=== PATIENT | male | born 1995 | race Caucasian/White ===

== ENCOUNTER 2017-12-30 23:32 | Emergency (ER) | payer OTHER, SELFPAY ==
[2017-12-30 23:33] VITALS: BP 147/93; PULSE 68; RESP 18; TEMP 36.4; O2SAT 99; BMI 25.1
[2017-12-30] MEDS: Loratadine 10 MG Tablet PO (23:52)
[2017-12-30] MEDS: HYDROcodone Bitartrate/Apap 5/325 Tablet PO (23:52)
--- NOTE | 2017-12-31 00:14 | ED.VISSUMM ---
- ER Visit Summary Date of Service: 12/31/17 Chief Complaint: [Right ear pain and sore throat] History of Present Illness: The patient is a 22 M [presents the emergency department complaint of right ear pain that became more severe today. Patient states that about a week ago he started with a sore throat that then resolved after a couple of days that he started having some right sided sore throat and ear pain that gradually worsened tonight. Patient currently rates his pain a 6 out of 10. Patient has not had a fever. Denies any sick contacts. Denies any trauma to his ear.] Physical Examination: [HEENT-PERRLA, EOMI. Cranial nerves II through XII grossly intact. TMs clear. Mucous membranes moist. No adenopathy. Patient has small amount of fluid behind the right ear drum but no signs of infection. Pharynx is slightly erythematous. Tonsils are plus 3 out of 4 without evidence of exudates. No trismus on exam. No evidence of peritonsillar abscess. Cardiovascular-regular rate and rhythm without murmur or ectopy Lungs-clear to auscultation, chest wall stable without crepitus or subcu emphysema Abdomen-normoactive bowel sounds, soft, nontender, no rebound or rigidity, no peritoneal signs. Extremities-intact ?4, normal range of motion, normal pulses, atraumatic] Test Results: [Rapid strep screen was positive] Emergency Department Course and Treatment: [Patient was medicated with amoxicillin, Rose, and a dose of Claritin] Treatment Plan: [Patient will be given a prescription for Rose and amoxicillin] Disposition: [Discharged home in stable condition] Impression: [Strep pharyngitis Right ear pain] This note was generated with [employer] dictation software. It may contain incorrect words, spelling, and punctuation that were not noted in review of the chart prior to signing ED Disposition - Plan for ED Patient: Chief Complaint: Ear Problem Referrals: Tai Rios DO [Primary Care Provider] -
--- NOTE | 2017-12-31 00:18 | DCINST.ED_ITS ---
ED Disposition - Plan for ED Patient: Chief Complaint: Ear Problem Instructions: ED Strep Pharyngitis Conf Prescriptions: Hydrocodone Bitart/Apap 5-325 [[place] 5MG-325MG] 1 tab PO Q4H PRN PRN 2 Days #10 tab PRN Reason: Pain Amoxicillin 500 mg PO TID #30 tab Referrals: Tai Rios DO [Primary Care Provider] - 5-7 Days
[2017-12-31] MEDS: HYDROcodone Bitartrate/Apap 5/325 Tablet PO (00:22)
[2017-12-31] MEDS: AMOXICILLIN 500 MG CAPSULE PO (00:23)
[2017-12-31 00:27] VITALS: RESP 16
--- NOTE | 2017-12-31 00:28 | ED.RN ---
REVIEWED D/C INSTRUCTIONS, FOLLOW UP CARE, PRESCRIPTIONS, AND S/S THAT WOULD WARRANT A RETURN TO THE ED WITH PT. PT VERBALIZED AN UNDERSTANDING AND DENIES FURTHER QUESTIONS FOR THIS RN. PT SKIN P/W/D, RESP EVEN AND UNLABORED, PT A&O X 3, NO DISTRESS NOTED. PT AMBULATED OUT OF ED, GAIT STEADY.
== END 2017-12-31 00:29 | disposition home or self-care (01) ==
LOC: ED 23:59
PROVIDERS: Emergency Provider Emergency Medicine; Family Provider Family Medicine; PCP Family Medicine
DX: J02.0 Streptococcal pharyngitis (principal); H92.01 Otalgia, right ear
CPT/HCPCS: 87880; 99283

== ENCOUNTER 2022-06-27 10:58 | Day surgery (SDC) | payer OTHER, SELFPAY ==
[2022-06-27] VITALS (7 sets, daily range): BP systolic 118–129; BP diastolic 72–88; PULSE 51–62; RESP 16–18; TEMP 35.9–37.1; O2SAT 97–100; BMI 25.4
[2022-06-27] MEDS: Lactated Ringers 1,000 ML 15 ML IV (10:55)
--- NOTE | 2022-06-27 11:44 | PCM.HP.BLA ---
History and Physical Date of Admission: 06/27/22 Visit Reasons:?Right inguinal hernia Chief Complaint: right inguinal hernia Is patient in pain?: No Allergies No Known Allergies Allergy (Verified 06/15/22 07:11) [facility] Social History Smoking Status:? Never smoker HPI HPI HPI: 26-year-old gentleman presents with concerns regarding an inguinal hernia.? This is on the right side.? He has had it for about 3 weeks.? It did occur with some lifting.? He is otherwise physically very active.? He has had a previous left inguinal hernia repair by me in approximately 2011.? He also had a epigastric ventral hernia performed at that same time.? He has not had any umbilical surgery.? He otherwise enjoys very good health. ROS General General: No weight change, appetite, fatigue, colon cancer, breast cancer or weakness HEENT HEENT: No difficulty swallowing, eye injury, eye surgery, swollen glands or hoarseness Endo Endocrine: No thyroid disease, diabetes mellitus, thyroid cancer, Hair loss, heat intolerance or cold intolerance Skin Skin: No rash or changing moles Musc Musculoskeletal: No back problems, arthritis, rheumatoid arthritis, gout or joint pain Cardio Cardiovascular: No murmur, pacemaker, heart disease, atrial fibrillation, high blood pressure, heart attack, heart stent, palpitations, shortness of breat with exertion or chest pain Psych Psychiatric: No depression, anxiety or hearing voices Resp Respiratory: No shortness of breath, No sleep apnea, No cough, No COPD, No asthma, No emphysema and No wheezing Gastro Gastrointestinal: No abdominal pain, No nausea or vomiting, No diarrhea, No constipation, No blood in stool, No acid reflux, No hemorrhoids, No ulcers, No gallbladder problem and No black,tarry stools Deng Hematologic: No blood thinners, No blood disorders, No bleeding, No anemia and No blood clots Neuro Neurologic: No system reviewed and no additional complaints, except as documented, No as per HPI, No abnormal gait, No abnormal hearing, No abnormal movements, No abnormal speech, No behavioral changes, No burning sensations, No confusion, No convulsions, No disequilibrium, No dizziness, No localized weakness, No frequent falls, No headache(s), No lack of coordination, No loss of vision, No memory loss, No numbness, No other visual disturbances, No radicular pain, No restless legs, No sensory deficit, No syncope, No tingling, No tremor(s), No weakness and No other Exam Const General: cooperative, healthy appearing, comfortable and no acute distress [facility] Head: normal to inspection Eyes General: appearance normal, both eyes and all related structures Neck Neck: normal visual inspection Chest Chest palpation & inspection: normal inspection of the chest Resp Effort & Inspection: normal respiratory effort Auscultation: clear to auscultation bilaterally Cardio Rate: regular rate Rhythm: regular rhythm GI Inspection: normal to inspection Palpation: soft and no hepatosplenomegaly Auscultation: normal bowel sounds Other: Well-healed transverse left groin incision solid and intact.? Testicles are descended bilaterally.? Obvious right inguinal hernia but currently reducible. Skin General: no rashes or lesions noted Neuro General: patient alert, patient awake and patient oriented x3 Cognition: normal cognition Extrem General: no calf tenderness Psych Appearance: grossly normal Assessment and Plan Assessment and Plan (1) Inguinal hernia of right side without obstruction or gangrene: ?Status:?Acute ?Plan: I recommended the patient a laparoscopic right inguinal herniorrhaphy with mesh.? He is a very healthy patient and very active.? I believe that this would allow for least risk of operative complication and recurrence.? He has had an opportunity ask and have questions answered.? We will schedule procedure at his discretion. Dada Varela M.D., F.A.C.S I have examined the patient and the H&P has been reviewed. There are no clinical changes since date of exam. Dada Varela M.D., F.A.C.S.
--- NOTE | 2022-06-27 11:45 | DCINST_ITS ---
Discharge Instructions Procedure General Surgery Diet Discharge Diet: Light diet - advance as tolerated (if you have questions about your diet instructions, please talk to you doctor.) Activity Discharge Activity: May Not Drive (for 3-5 days or while taking narcotic pain medicine.) May shower in (days): 1 Lifting Restrictions: 10 pounds Dressing / Incision Call your doctor if your incision/area has: Continuous Slow Oozing, Sudden Increased Bleeding, Increased Pain/ Swelling, Increased Redness and Foul Smelling Discharge Call your doctor if you observe: Fever of 101 or Higher Suture Line Care: Avoid Pulling/Pushing and Avoid Pinching/Bending Additional Dressing/Incision Instructions:: Change or remove dressing in 4 days. Leave steri-strips in place for 1 week. Follow Up Care Please Follow Up With: Dada Varela MD When: Call [phone] to make an appointment to be seen in about 10 days. Test Results: Test results from this visit will be discussed in further detail at your follow- up appointment, if applicable. Discharge Plan Admission Attending Provider: Dada Varela Primary Care Provider: Tai Rios Discharge Orders/Prescriptions Prescriptions: No Action NK Referrals / Follow Up: Tai Rios DO [Primary Care Provider] - Disposition Disposition (needs filled in before D/C Order can be placed): Home, Self Care
[2022-06-27] MEDS: Cefazolin 2 GM in 0.9% Normal Saline 100 ML IV (11:57)
--- NOTE | 2022-06-27 13:06 | PCM.OPRPT ---
Report of Operation Date of Procedure: 06/27/22 Pre-Operative Diagnosis: Symptomatic right inguinal hernia Post-Operative Diagnosis: Symptomatic indirect right inguinal hernia Surgery/Procedure Performed:: Laparoscopic right inguinal herniorrhaphy with Bard 3D max large mesh Lot [id number], reference [id number], expiry date 09/11/2026 Description of Surgical Findings:: Timeout and informed consent was obtained. 26-year-old gentleman was taken to the operating placed upon the table underwent general endotracheal intubation anesthesia. The abdomen was sterilely prepped and draped. Ancef 2 g were given intravenously. 0.25% Marcaine was used as a local anesthetic. Throughout the procedure a total of 30 cc was used. Local was instilled a vertical infraumbilical incision was created holding sutures of 0 Vicryl placed varies needle inserted saline drop test performed the abdomen was insufflated with CO2 to a pressure of 10 mmHg pressure 10 mm trocar inserted 10 mm laparoscope inserted no evidence of any trocar injuries 5 mm ports were placed in the right left lower quadrant inspection revealed that the left groin appeared to be very solid and intact there was evidence of moderately large indirect right inguinal hernia the peritoneum superior lateral to the internal ring was incised after a ilioinguinal nerve block was performed under laparoscopic visualization. The peritoneum was then dissected dissected and reflected. The direct space femoral area and indirect space was cleanly identified. Tediously the indirect sac was bluntly and where needed sharply dissected free. Hemostasis was obtained electrocautery and where needed Hem-o-fabienne clips. The sac was completely inverted and dissection was performed to completely dissect free the peritoneum to allow for smooth lining of the mesh. A Bard 3D max large mesh was placed on the right it appeared to cover the direct indirect and femoral area nicely it was secured in place superiorly laterally and medially with secure strap I felt that I had very good positioning of the mesh. The peritoneum was then approximated to itself using secure strap and Hem-o-fabienne clips. Complete obliteration of access to the mesh was achieved. The abdomen was allowed to deflate of the CO2 through an antiviral valve. The fascia at the umbilicus because of the presence of a very small defect was approximated with a [id number] suture of 0 Nurolon. Good closure was achieved. Steri-Strips Telfa OpSite dressings applied. Sponge and instrument and needle counts were reported to the surgeon to be correct. Specimens none. Drains none. Blood loss minimal The patient was taken to the recovery room in satisfactory addition without apparent complication Surgeon: Dada Varela Type of Anesthesia: General and Local Anesthesiologist: Adele Castaneda
== END 2022-06-27 17:02 | disposition home or self-care (01) ==
LOC: SDC 11:01 → AC 11:03
PROVIDERS: PCP Family Medicine; Referring Provider Surgery; Visit Provider Surgery
PROC: (CPT 49650; principal; 2022-06-27 12:10)
DX: K40.90 Unilateral inguinal hernia, without obstruction or gangrene, not specified as recurrent (principal)
CPT/HCPCS: 49650; 00840; J7120; C1781; J2405